=== PATIENT | male | born 1995 | race African-American/Black ===

== ENCOUNTER 2017-10-16 01:57 | Emergency (ER) | payer SELFPAY ==
[~2017-10-16] VITALS: Ht 185.4 cm; Wt 113.4 kg
[2017-10-16 02:12] VITALS: Ht 185.4 cm; Wt 113.4 kg
[2017-10-16 05:50] VITALS: BP 123/79
== END 2017-10-16 06:07 | disposition home or self-care (01) ==
LOC: ED 01:57
DX: J45.909 Unspecified asthma, uncomplicated (principal); Z88.8 Allergy status to other drugs, medicaments and biological substances